=== PATIENT | female | born 1990 ===

== ENCOUNTER 2022-08-01 17:59 | Emergency (ER) | payer OTHER, SELFPAY ==
--- NOTE | ~2022-08-01 | XR_ITS ---
EXAMINATION: XR KNEE, LEFT CLINICAL INFORMATION: Fall and pain COMPARISON: None TECHNIQUE: Four views of the left knee. FINDINGS: No significant joint effusion. Bones are normal anatomic alignment. I do not appreciate any acute fracture or dislocation. No bony destructive lesions or periosteal reaction. XR/XR knee LT 2V IMPRESSION: No acute bony abnormality.
--- NOTE | ~2022-08-01 | XR_ITS ---
EXAMINATION: XR SHOULDER, RIGHT CLINICAL INFORMATION: Fall and pain COMPARISON: None TECHNIQUE: AP external rotation, Grashey, scapular Y, and axillary views of the right shoulder. FINDINGS: The bones and soft tissues are normal. No fracture. Glenohumeral and acromioclavicular alignment is anatomic with normal joint space. No abnormal soft tissue calcifications. XR/XR shoulder RT min 2V IMPRESSION: Normal right shoulder.
--- NOTE | ~2022-08-01 | CT_ITS ---
EXAMINATION: CT HEAD WITHOUT CONTRAST CT CERVICAL SPINE WITHOUT CONTRAST CLINICAL INFORMATION: Headache. Neck pain. Fall. COMPARISON: None available. TECHNIQUE: Contiguous axial imaging was performed from the skull base to vertex without intravenous administration of contrast. Contiguous axial imaging was performed from the upper chest through the skull base without intravenous administration of contrast. Coronal and sagittal reformats were obtained at the acquisition workstation. This CT examination was performed using dose optimization techniques as appropriate, variously including the following: *Automated exposure control. *Adjustment of mA and/or kV according to patient size (this includes techniques or standardized protocols for targeted exams where dose is matched to indication/reason for exam; i.e. extremities or head). *Use of iterative reconstruction technique. DLP: 1014 mGy-cm FINDINGS: Head: There is no evidence of acute intracranial hemorrhage or edematous territorial infarction. Woodard-white matter differentiation is preserved. There is no abnormal attenuation within the brain parenchyma. The ventricles are normal in morphology and size. No evidence for obstructive hydrocephalus. No abnormal mass effect or midline shift. No extra-axial fluid collections. Moderate subgaleal hematoma along the right aspect of the frontal bone, measuring up to 0.5 cm in depth. No associated osseous abnormalities. Moderate mucosal thickening of the paranasal sinuses. The mastoid air cells and middle ear cavities are clear. Cervical Spine: The atlantooccipital and atlantoaxial articulations remain well aligned. Straightening of the normal cervical lordosis. Otherwise, there is anatomic alignment of the vertebral bodies and posterior elements. No evidence of acute fracture or subluxation. The vertebral body heights are maintained. Mild degenerative disc disease at C5-C6 and C6-C7. Otherwise, the vertebral body heights are well-maintained. There is no prevertebral soft tissue swelling. The thyroid gland and remaining cervical soft tissues are normal in appearance. The lung apices demonstrate no abnormalities. CT/CT cervical spine wo IV con IMPRESSION: 1. No evidence of acute intracranial hemorrhage or edematous territorial infarction. 2. No evidence of acute fracture or traumatic subluxation of the cervical spine. 3. Right frontal scalp hematoma. No associated osseous abnormalities.
--- NOTE | 2022-08-01 18:07 | ED.GENADULT ---
HPI - General Adult General Chief complaint: Fall <CHE Rajput - Last Filed: 08/01/22 18:09> Stated complaint: fell down stairs, head/ neck/ shoulder pain <CHE Rajput - Last Filed: 08/01/22 18:09> Time Seen by Provider: 08/01/22 20:06 <CHE Rajput - Last Filed: 08/01/22 18:09> Source: patient <Lubna Muir MD - Last Filed: 08/01/22 21:03> Mode of arrival: ambulatory <Lubna Muir MD - Last Filed: 08/01/22 21:03> History of Present Illness HPI narrative: 32-year-old female states that she fell down 10 stairs yesterday with a head strike but denies any loss of consciousness but reports some memory loss after the event and is not on any blood thinners. Patient is reporting some forehead pain, shoulder and left knee pain. She otherwise denies any fever, chills, GI or symptoms. <Lubna Muir MD - Last Filed: 08/01/22 21:03> Related Data Allergies/adverse reactions: Allergies Allergy/AdvReac Type Severity Reaction Status Date / Time No Known Allergies Allergy Verified 08/01/22 18:09 <CHE Rajput - Last Filed: 08/01/22 18:09> Review of Systems Review of Systems: Pertinent positives and negatives as stated in HPI <Lubna Muir MD - Last Filed: 08/01/22 21:03> [facility] Past Medical History Source: nursing notes reviewed <Lubna Muir MD - Last Filed: 08/01/22 21:03> Social History Social History: Social History Advance Directives: No Advance Directives Information Provided: No <CHE Rajput - Last Filed: 08/01/22 18:09> Physical Exam ED Vital Signs: Vital Signs - 24 hr 08/01/22 18:09 08/01/22 20:00 Temperature 98.7 F 98.4 F Pulse Rate 101 H 100 Respiratory Rate 18 18 Blood Pressure 123/73 120/76 Pulse Oximetry 100 100 Oxygen Delivery Method Room Air Room Air BMI result Body Mass Index 27.4 <CHE Rajput - Last Filed: 08/01/22 18:09> Vital Signs - 24 hr 08/01/22 18:09 08/01/22 20:00 Temperature 98.7 F 98.4 F Pulse Rate 101 H 100 Respiratory Rate 18 18 Blood Pressure 123/73 120/76 Pulse Oximetry 100 100 Oxygen Delivery Method Room Air Room Air BMI result Body Mass Index 27.4 VITAL SIGNS: Reviewed. GENERAL: Well developed, well nourished, in no acute distress. HEAD: Normocephalic/contusion to right forehead EYES: PERRLA, EOMI EARS: Ext canals without abnormality NOSE: Nares patent bilateral, no septal hematoma OROPHARYNX: no oral lesions noted, posterior pharynx clear NECK: Supple, no adenopathy, no midline cervical spine tenderness to palpation or step-offs LUNGS: Normal breath sounds. No adventitious sounds or accessory muscle use. SpO2<100> CARDIOVASCULAR: Regular rate and rhythm without noted murmurs ABDOMEN: Soft, non-tender, non-distended with bowel sounds. MUSCULOSKELETAL: No tenderness, deformities, or effusions noted on gross inspection. EXTREMITIES: No cyanosis, clubbing or edema. SKIN: Inspection of the skin reveals no rashes NEUROLOGIC: Alert and oriented x 4. Strength and sensation to light touch were grossly intact x 4. <Lubna Muir MD - Last Filed: 08/01/22 21:03> Course Course Course Narrative: RME performed by Sera Jensen PA-C. Patient is a 32 year old female presenting to the emergency department with head, neck, and shoulder pain after falling down some stairs. Imaging ordered. Patient placed back in the waiting room pending results and room availability. <CHE Rajput - Last Filed: 08/01/22 18:09> Medical Decision Making Medical Decision Making MDM Narrative: 32-year-old female with history and clinical presentation consistent with minor contusions and likely having some residual concussion. I reviewed all imaging studies and my interpretation is in agreement with radiology's impression of the imaging studies. Patient otherwise appears well, hemodynamically stable and will be provided with combination analgesics and then discharged home in stable condition. <Lubna Muir MD - Last Filed: 08/01/22 21:03> Differential Diagnosis Please see the discussion above <Lubna Muir MD - Last Filed: 08/01/22 21:03> Radiology Impression Radiologist Impression: My interpretation is in agreement with radiology's impression of the imaging studies. <Lubna Muir MD - Last Filed: 08/01/22 21:03> Discharge Plan Discharge Clinical Impression: Fall, Concussion without loss of consciousness <CHE Rajput - Last Filed: 08/01/22 18:09> Patient Disposition: Home, Self-Care <CHE Rajput - Last Filed: 08/01/22 18:09> Instructions: Fall Prevention (ED), Concussion (ED) <CHE Rajput - Last Filed: 08/01/22 18:09> Additional Instructions: 1. Drink plenty of water and recommend [id number] Tylenol/ibuprofen as needed for pain control. You may also want to apply ice to unexposed skin at the right forehead to help reduce the swelling even further. 2. Follow-up with primary care provider in the next 1-2 days. Return to the ER for any worsening symptoms. <CHE Rajput - Last Filed: 08/01/22 18:09>
[2022-08-01 18:09] VITALS: BP 123/73; PULSE 101; RESP 18; TEMP 37.1; O2SAT 100; BMI 27.4
--- NOTE | 2022-08-01 18:48 | PC.NURSE ---
Patient presents to ED with fall last night approx 1 am denies LOC but doesnt remember how she got back to apt. Abrasion noted to face denies ETOH or drug use. AOx 4 neuros intact ambulatory with steady independent gait. Patient to X ray will CTM
[2022-08-01 20:00] VITALS: BP 120/76; PULSE 100; RESP 18; TEMP 36.9; O2SAT 100
--- NOTE | 2022-08-01 20:49 | MHC.EDTECH ---
Brought patient warm blanket, gingerale, and crackers.
[2022-08-01] MEDS: Ibuprofen 400 MG TABLET PO (21:39)
[2022-08-01] MEDS: Acetaminophen 325 MG TABLET 975 MG PO (21:39)
[2022-08-01 21:41] VITALS: BP 120/77; PULSE 94; RESP 14; TEMP 36.8; O2SAT 100
--- NOTE | 2022-08-01 21:55 | PC.NURSE ---
pt medicated according to mar. montez pwd. vss. pt ambulatory at discharge. pt provided with discharge packet. pt verbalizes understanding of discharge plan. pt discharged to waiting room to await ride
== END 2022-08-01 21:56 | disposition home or self-care (01) ==
PROVIDERS: Emergency Provider Student in an Organized Health Care Education/Training Program
DX: S06.0X0A Concussion without loss of consciousness, initial encounter (principal); S00.81XA Abrasion of other part of head, initial encounter; W10.8XXA Fall (on) (from) other stairs and steps, initial encounter; Y93.89 Activity, other specified; Y92.89 Other specified places as the place of occurrence of the external cause; Y99.9 Unspecified external cause status
CPT/HCPCS: 70450; 72125; 73030; 73560; 99284

== ENCOUNTER 2022-11-04 08:32 | Emergency (ER) | payer OTHER, SELFPAY ==
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
--- OUTSIDE RECORDS SUMMARY | 2022-11-04 08:52 | XMS_ITS | Continuity of Care Document ---
Author Name Unknown Organization [facility] Address [address] [place] [address]- Care Team Providers Care Pile Driving Nozzleman Name Role Phone Luís CARROLL, [facility] Primary Care Physician Encounter [facility] [place] Date(s): 06/14/19 - 07/16/19 [facility] [address] [place] [address]- [facility] Attending Physician: Not on Staff, Attending MD Allergies, Adverse Reactions, Alerts Substance Reaction Severity Status NKA Active Immunizations Given and Recorded Vaccine Date Status Refusal Reason tetanus/diphtheria/pertussis, acel(Tdap) 1 02/15/19 Given pneumococcal 23-valent vaccine 2 02/15/19 Given influenza virus vaccine, inactivated 02/15/19 Give n 1Result Comment: RIGHT DELTOID LOWER 2Result Comment: RIGHT DELTOID UPPER Medications albuterol CFC free 90 mcg/inh inhalation aerosol 2, puffs, Inhalation, 4 times a day, # 18 Gm, Refills 5, Tot. Refills 5, Soft Stop, 02/15/19 10:46:44 EDT, Route to Pharmacy Electronically, [id number], [facility]/pharmacy #[id number] Start Date: 02/15/19 Stop Date: 08/14/19 Status: Ordered Flovent HFA 110 mcg/inh inhalation aerosol 2 puffs, Inhalation, 2 times a day, # 12 Gm, 3 Refills, Maintenance, 12/29/18 15:41:37 EDT, Aerosol Start Date: 12/29/18 Stop Date: 04/28/19 Status: Ordered Flovent HFA 110 mcg/inh inhalation aerosol 2 puffs, Inhalation, 2 times a day, # 12 Gm, 0 Refills, Maintenance, 02/15/19 10:46:27 EDT, Aerosol Start Date: 02/15/19 Status: Ordered hydrOXYzine hydrochloride 25 mg oral tablet 1 tablet = 25 mg, By Mouth, 4 times a day, PRN for anxiety, # 40 tablet, 0 Refills, Maintenance, 02/15/19 10:46:06 EDT, Tablet Start Date: 02/15/19 Status: Ordered Problem List Condition Effective Dates Status Health Status Inform ant Asthma(Confirmed) Active Depression(Confirmed) Active Opioid abuse(Confirmed) Active Heroin abuse(Confirmed) Active Social History Social History Type Response Smoking Status 10 or more cigarette s (1/2 pack or more)/day in last 30 days; Other: Half pack to 1 pack a day.; entered on: 12/29/18 Sex
--- OUTSIDE RECORDS SUMMARY | 2022-11-04 08:52 | XMS_ITS | Continuity of Care Document ---
Author Name Unknown Organization [facility] Address [address] [place] [address]- Care Team Providers Care Financial Advisor Trainee Name Role Phone Luís CARROLL, [facility] Primary Care Physician Encounter [facility] [place] Date(s): 07/04/19 - 07/11/19 [facility] [address] [place] [id number] [facility] Encounter Diagnosis Conjunctivitis(Discharge Diagnosis) - 07/04/19 Cocaine abuse(Discharge Diagnosis) - 07/04/19 Heroin abuse(Discharge Diagnosis) - 07/04/19 Opioid abuse(Discharge Diagnosis) - 07/04/19 Attending Physician: Beth COMPLIANCE NURSE, Bridget Allergies, Adverse Reactions, Alerts Substance Reaction Severity [...] 02/15/19 10:46:44 EDT, Route to Pharmacy Electronically, [id number], [facility]/pharmacy #[id number] Start Date: 02/15/19 Stop Date: 08/14/19 Status: [...] Active Opioid abuse(Confirmed) Active Heroin abuse(Confirmed) Active Diagnosis Diagnosis Type Effective Dates Health Status Cl inical Service Informant Opioid abuse Discharge Diagnosis 07/04/19 Cocaine abuse Discharge Diagnosis 07/04/19 Heroin abuse Discharge Diagnosis 07/04/19 Conjunctivitis Discharge Diagnosis 07/04/19 Vital Signs Most recent to oldest [Reference Range]: 1 Height 157.5 cm (07/04/19 1:15 PM) Weight 80.4 kg (07/04/19 1:15 PM) Oxygen Saturation [94-100 %] 93 % *L* (07/04/19 1:15 PM) Pulse Rate [55-90 bpm] 99 bpm *H* (07/04/19 1:15 PM) Body Mass Index [18.5-24.99] 32.41 *>HHI* (07/04/19 1:15 PM) Blood Pressure [90-138/55-84 mm Hg] 104/ 60mm Hg (07/04/19 1:15 PM) Temperature [96.8-100.4 DegF] 98.4 DegF (07/04/19 1:15 PM) Mode of Delivery (Oxygen) Room air (07/04/19 1:15 PM) Blood pressure sites Arm, left (07/04/19 1:15 PM) Temperature Route Oral (07/04/19 1:15 PM) Weight Obtained Via Standing scale (07/04/19 1:15 PM) Social History Social History Type Response Smoking Status 10 or more cigarette s (1/2 pack or more)/day in last 30 days; Other: Half pack to 1 pack a day.; entered on: 12/29/18 Sex
--- OUTSIDE RECORDS SUMMARY | 2022-11-04 08:52 | XMS_ITS | Continuity of Care Document ---
Author Name Unknown Organization [facility] Address [address] [place] [address]- Care Team Providers Care Bilingual Counter Sales Retail Name Role Phone Luís CARROLL, [facility] Primary Care Physician [place] [facility] [place] 07/04/19 - 09/27/19 [facility] [address] [place] [id number]- [facility] Attending Physician: Luís CARROLL, [facility] Allergies, Adverse Reactions, Alerts Substance Reaction Severity [...] Refills 5, Tot. Refills 5, Soft Stop, 09/18/19 11:40:00 EDT, Route to Pharmacy Electronically, [id number], [facility][id number], 157.5, cm, 07/04/19 13:15:00 EST, Height Start Date: 09/18/19 Stop Date: 03/16/20 Status: Ordered Flovent HFA 110 mcg/inh inhalation aerosol 2 puffs, Inhalation, 2 times a day, # 12 Gm, 5 Refills, Maintenance, 09/18/19 11:40:00 EDT, Aerosol, [id number], 157.5, cm, 07/04/19 13:15:00 EST, Height Start Date: 09/18/19 Stop Date: 03/16/20 Status: Ordered Flovent HFA 110 mcg/inh inhalation [...]
--- OUTSIDE RECORDS SUMMARY | 2022-11-04 08:52 | XMS_ITS | Continuity of Care Document ---
Author Name Unknown Organization [facility] Address [address] [place] [address]- Care Team Providers Care Rack Pusher Name Role Phone Luís CARROLL, [facility] Primary Care Physician ( [phone] Encounter [facility] [place] Date(s): 06/13/19 - 07/14/19 [facility] [address] [place] [id number]- [facility] Attending Physician: Conner PEPE, Jacqueline Oneill Allergies, Adverse Reactions, Alerts Substance Reaction Severity [...] 02/15/19 10:46:44 EDT, Route to Pharmacy Electronically, [id number], [facility]/pharmacy #[id number] Start Date: 02/15/19 Stop Date: 08/14/19 Status: [...]
--- OUTSIDE RECORDS SUMMARY | 2022-11-04 08:52 | XMS_ITS | Continuity of Care Document ---
Author Name Unknown Organization [facility] Address [address] [place] [address]- Care Team Providers Care Ultrasound Manager Name Role Phone Luís CARROLL, [facility] Primary Care Physician Encounter [facility] [place] Date(s): 09/18/19 - 10/18/19 [facility] [address] [place] [address]- [facility] Attending Physician: AdmCallum whitaker Admitting Physician: AdmtrCallum Referring Physician: Admtr, Ar8 Allergies, Adverse Reactions, Alerts Substance Reaction Severity [...] 09/18/19 11:40:00 EDT, Route to Pharmacy Electronically, [id number], [id number], 157.5, cm, 07/04/19 13:15:00 EST, Height Start Date: 09/18/19 Stop Date: 03/16/20 Status: Ordered Flovent HFA 110 mcg/inh inhalation aerosol 2 puffs, Inhalation, 2 times a day, # 12 Gm, 5 Refills, Maintenance, 09/18/19 11:40:00 EDT, Aerosol, [facility], 157.5, cm, 07/04/19 13:15:00 EST, Height Start [...]
--- OUTSIDE RECORDS SUMMARY | 2022-11-04 08:52 | XMS_ITS | Continuity of Care Document ---
Author Name Unknown Organization [facility] Address [address] [place] [address]- Care Team Providers Care Freight Trucker Name Role Phone Luís CARROLL, [facility] Primary Care Physician Encounter [facility] [place] Date(s): 08/28/19 - 09/07/19 [facility] [address] [place] [address]- [facility] Attending Physician: Admjulianne, Callum Admitting Physician: AdmtrCallum Referring Physician: Admtr, Ar8 [...] 02/15/19 10:46:44 EDT, Route to Pharmacy Electronically, [id number], [facility]/pharmacy #[id number] Start Date: 02/15/19 Stop Date: 08/14/19 Status: [...]
--- OUTSIDE RECORDS SUMMARY | 2022-11-04 08:52 | XMS_ITS | Continuity of Care Document ---
Author Name Unknown Organization [facility] Address [address] [place] [address]- Care Team Providers Care Radiation Oncology Manager Name Role Phone Luís CARROLL, [facility] Primary Care Physician Encounter [facility] [place] Date(s): 06/16/19 - 06/26/19 [facility] [address] [place] [address]- [facility] Attending Physician: AdmCallum whitaker Admitting Physician: AdmtrCallum [...] albuterol CFC free 90 mcg/inh inhalation aerosol 1, puffs, Inhalation, 4 times a day, PRN, # 25 Gm, Refills 0, Maintenance, 02/15/19 10:46:34 EDT, Aerosol Start Date: 02/15/19 Status: Ordered albuterol CFC free 90 mcg/inh inhalation aerosol 2, puffs, Inhalation, 4 times a day, # 18 Gm, Refills 5, Tot. Refills 5, Soft Stop, 02/15/19 10:46:44 EDT, Route to Pharmacy Electronically, [id number], [facility]/pharmacy #[id number] Start Date: 02/15/19 Stop Date: 08/14/19 Status: [...] EDT, Tablet Start Date: 02/15/19 Status: Ordered mirtazapine 15 mg oral tablet 1 tablet = 15 mg, By Mouth, Daily at bedtime, # 30 tablet, 0 Refills, Maintenance, 02/15/19 10:45:39 EDT, Tablet Start Date: 02/15/19 Status: Ordered Problem List Condition Effective Dates Status Health Status Inform ant Asthma(Confirmed) Active Opioid abuse(Confirmed) Active Social History Social History Type Response Smoking Status 10 or more cigarette s (1/2 pack or more)/day in last 30 days; Other: Half pack to 1 pack a day.; entered on: 12/29/18 Sex
[2022-11-04 09:03] VITALS: BP 91/63; PULSE 75; RESP 16; TEMP 36.6; O2SAT 97; BMI 29.0
[2022-11-04] MEDS: Lidocaine HCl 1 % MPF 5 ML VIAL 15 ML SUBCUT (09:16)
[2022-11-04] MEDS: Diphth,Pertus(ACell),Tet Adult 0.5 ML SYRINGE IM (09:16)
--- NOTE | 2022-11-04 11:15 | PC.NURSE ---
Resumed care of patient, she is currently resting in bed, all safety measures in place
--- NOTE | 2022-11-04 13:05 | PC.NURSE ---
Pt mom reported that she presented the info to court. and had to return this afternoon for a decision
[2022-11-04 13:21] VITALS: BP 108/73; PULSE 67; RESP 16; TEMP 37.2; O2SAT 95
== END 2022-11-04 16:41 | disposition home or self-care (01) ==
PROVIDERS: Emergency Provider Emergency Medicine
DX: S01.81XA Laceration without foreign body of other part of head, initial encounter (principal); W18.30XA Fall on same level, unspecified, initial encounter; Y93.9 Activity, unspecified; Y92.9 Unspecified place or not applicable; Y99.9 Unspecified external cause status; Z23 Encounter for immunization
CPT/HCPCS: 70450; 72125; 90471; 90715; 99284